=== PATIENT | female | born 1995 | race Caucasian/White ===

== ENCOUNTER 2018-04-07 19:54 | Inpatient (IN) | payer MEDICAID ==
[2018-04-07 20:08] VITALS: O2SAT 98
--- NOTE | 2018-04-07 20:18 | C.PDOC ---
History Of Present Illness 22 y/o female presents via ambulance, transferred for psychiatric admission for depression and suicidal attempt via overdose. Of note, patient was transferred from [facility] (Formerly [facility]3]. She was already evaluated and medically cleared for psychiatric admission, accepted under Dr. Blair. No other complaints offered on arrival. Time Seen by Provider: 04/07/18 20:04 Chief Complaint (Nursing): Psychiatric Evaluation History Per: Patient History/Exam Limitations: no limitations Onset/Duration Of Symptoms: Days Past Medical History Reviewed: Historical Data, Nursing Documentation, Vital Signs Vital Signs: Last Vital Signs Temp 98.5 F 04/07/18 20:02 Pulse 90 04/07/18 20:02 Resp 14 04/07/18 20:02 BP 115/75 04/07/18 20:02 Pulse Ox 98 04/07/18 20:02 - Medical History PMH: Anxiety, Depression Other Surgeries: 05/2017, Breast augmentation surgery Family History: States: No Known Family Hx - Social History Hx Alcohol Use: Yes Hx Substance Use: No - Immunization History Hx Tetanus Toxoid Vaccination: No Hx Influenza Vaccination: No Hx Pneumococcal Vaccination: No Review Of Systems Constitutional: Negative for: Fever Cardiovascular: Negative for: Chest Pain Respiratory: Negative for: Shortness of Breath Neurological: Negative for: Weakness, Numbness Psych: Positive for: Depression, Suicidal ideation Physical Exam - Physical Exam Appears: Non-toxic, No Acute Distress Skin: Normal Color, Warm, Dry Head: Atraumatic, Normacephalic Eye(s): bilateral: Normal Inspection Chest: Symmetrical Respiratory: No Accessory Muscle Use, Other (No respiratory distress) Extremity: Bilateral: Atraumatic, Normal Color And Temperature Pulses: Left Radial: Normal, Right Radial: Normal Neurological/Psych: Oriented x3, Normal Speech ED Course And Treatment O2 Sat by Pulse Oximetry: 98 (RA) Pulse Ox Interpretation: Normal Progress Note: Patient already accepted under Dr. Blair, admit orders placed. Disposition - Disposition Disposition: HOSPITALIZED Disposition Time: 20:46 Condition: STABLE - POA Present On Arrival: None - Clinical Impression Clinical Impression: Moderate major depression, single episode, Suicide attempt - Scribe Statement The provider has reviewed the documentation as recorded by the Scribe (Macy Shirley) Provider Attestation: All medical record entries made by the Scribe were at my direction and personally dictated by me. I have reviewed the chart and agree that the record accurately reflects my personal performance of the history, physical exam, medical decision making, and the department course for this patient. I have also personally directed, reviewed, and agree with the discharge instructions and disposition.
--- NOTE | 2018-04-08 14:45 | PCM.BM ---
<Tamara Sanders - Last Filed: 04/08/18 14:40> Treatment assets and liabiliti Patient Assests: cooperative, ADL independent, cognitively intact Patient Liabilities: live alone - Milieu Protocol Maintain good personal hygiene: daily Encourage regular showers Conduct patient checks and document Observation sheet: Q15 minutes Maintain personal safety: every shift Educate patient to report safety concerns to staff, every shift Monitor environment for contraband/sharps Medication safety: Monitor for expected outcome, potential side effects: every shift, Assess barriers to learning: every shift, Assess readiness for medication education: every shift <Doris Raymundo - Last Filed: 04/08/18 15:27> Family Contact Family involvement: Patient does not wish Family/SO involvement Family contact: Patient declines to allow family contact at present - Goals for Treatment Patient goals for treatment: "I want to be referred to an outpatient program for treatment." Discharge/Continuing Care - Education Needs Education Needs: Patient Medication, Patient Diagnosis/Disease Process, Patient Coping Skills, Patient Placement options, Patient Community resources - Discharge Discharge Criteria: Free of Suicidal thoughts, Normal sleep pattern, Ability to care for self, Reduction of target symptoms Discharge to:: Home - Treatment Team Participation Discussed with Family/SO: No Was Patient/Family/SO present at Treatment Team Meeting: Yes
--- NOTE | 2018-04-08 20:02 | PCM.PSYCH ---
Initial Psychiatric Evaluation - Initial Psychiatric Evaluation Type of Admission: Voluntary Legal Status: Capacity Chief Complaint (in patient's own words): I was depressed and I took 10 tablets of Loxitane age of 6 mg to kill myself. History of Present Illness and Precipitating Events: Patient is a 22 years old, single, recently employed, female with history of depression for last 2 years, increased in intensity since May 2017 after patient had . Patient started feeling more depressed, decreased sleep, feeling tired. Increased appetite, eats in binges especially when she is stressed. Suicidal ideations at time. Crying a lot, guilty, hopelessness and helplessness. Denied any psychosis, tommy or anxiety. This is patient's first psychiatric admission. Patient has history of visiting a psychiatrist/psychologist in [place]. Patient's last visit was 3 months ago. Patient was also getting therapy via phone from psychologist in [place]. Patient had one manic episodes in 2017 for 7 days. Patient moved from [place] to [place] to stay with her boyfriend. Patient started feeling depressed. Before admission patient to 10 tablets of Lexapro in order to kill herself due to depression. Patient has history of multiple surgeries including liposuction, breast implants, cheek surgery and also and enhancement of her butts. Patient started cannabis at 20 years of age. Patient reported she smoked only 4- 5 times since then. Last used on August 2017. Alcohol started drinking in May 2017 after having an . Last drink reported in June 2017. Patient was born in [place], has high school graduation. Started working one week ago. Lives with boyfriend. Her height is 5 feet 4 inches and weight is 155 pounds. Current Medications: Active Medications Generic Name Dose Route Start Last Admin Trade Name Freq PRN Reason Stop Dose Admin Haloperidol 5 mg 04/08/18 15:14 Haldol PO Q6 PRN Agitation Hydroxyzine HCl 25 mg 04/08/18 15:14 Atarax PO Q6 PRN Anxiety Floris Carbonate 300 mg 04/08/18 18:00 04/08/18 18:17 Floris Carbonate 300mg PO 300 mg BID ROSIE Administration Pneumococcal Polyvalent Vaccine 0.5 ml 04/09/18 10:00 Pneumovax 23 Vaccine IM 04/09/18 10:01 .ONCE ONE Sertraline HCl 50 mg 04/08/18 15:45 04/08/18 16:55 Zoloft PO 50 mg DAILY ROSIE Administration Trazodone HCl 50 mg 04/08/18 22:00 Desyrel PO HS ROSIE Past Psychiatric History - Past Psychiatric History Previous Treatment History: None History of Abuse: None reported History of ETOH/Drug Use: See HPI History of Family Illness: Reported history of alcohol and cocaine use in father. Pertinent Medical Hx (Current Medical&Sleep Prob, Allergies): Allergies Allergy/AdvReac Type Severity Reaction Status Date / Time No Known Allergies Allergy Unverified 04/07/18 20:07 Review of Systems - Psychiatric Psychiatric: As Per HPI, Depression, Hopelessness, Suicidal Ideation Mental Status Examination - Personal Presentation Personal Presentation: Looks stated age - Affect Affect: Depressed - Motor Activity Motor Activity: Calm - Reliability in Providing Information Reliability in Providing Information: Fair - Speech Speech: Organized - Mood Mood: Depressed - Formal Thought Process Formal Thought Process: No Impairment Additional comments: None - Hallucinations/Delusions Hallucinations: Other (None reported) Delusions: Other - Obsessions/Compulsions Obsessions: None Compulsions: None - Cognitive Functions Orientation: Person, Place, Situation, Time Sensorium: Alert Attention/Concentration: Attentive Abstract Thinking: [place] Estimate of Intelligence: Average Judgement: Intact, as evidence by: Insight regarding need for hospitalization Memory: Recent intact, as evidence by: 3/3 object recall, Remote intact, as evidenced by: Ability to recall historical events - Risk Risk: Withdrawal, Diminished functioning - Strength & Assets Inventory Strength & Assets Inventory: Cooperative - Limitations Limitations: Other (Lives with boyfriend) DSM 5 DX - DSM 5 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 Supportive therapy. We will start Zoloft and lithium for depression and suicidal ideations. Other when necessary medications. Patient will discuss with the social workers to find a follow-up place. Projected ELOS: 8-10 days - Smoking Cessation Smoking Cessation Initiated: No Reason for not providing: Patient doesn't smoke cigarettes
[2018-04-09] MEDS ORDERED: Pneumococcal 23-Valent Vaccine IM ONE (10:00)
--- NOTE | 2018-04-09 17:55 | PCM.PYCHPN ---
Psychiatric Progress Note - Psychiatric Progress Note Patient seen today, length of contact: 15 minutes Patient Chief Complaint: I'm feeling little better. Problems Identified/Issues Discussed: Patient seen, chart reviewed, case discussed with the staff. Issues related to illness and treatment were discussed with the patient and staff. Reported compliant with treatment with no adverse affects. Tolerating treatment very well. Patient reported feeling little better with the treatment. Staff reported that patient was little irritable yesterday evening, later calmed down after supportive therapy from this staff. Calm and cooperative. Awake, alert and oriented 3. No psychomotor activity, good eye contact, memory intact. Aftercare discussed with the patient. Denied any delusions, auditory or visual hallucinations, suicidal ideations or homicidal ideations at the time of evaluation. Medical Problems: None reported Diagnostic Results: Reviewed DSM 5 Symptoms Update: Some improvement with treatment, needs more time for stabilization. Medication Change: No Medical Record Reviewed: Yes Mental Status Examination - Cognitive Function Orientation: Person, Place, Situation, Time Memory: Intact Attention: WNL Concentration: WNL Association: WN Fund of Knowledge: [facility] Decription of patient's judgement and insights: Good - Mood Mood: Depressed - Affect Affect: Depressed - Speech Speech: Appropriate - Formal Thought Process Formal Thought Process: No Impairment Psychotic Thoughts and Behaviors: None - Suicidal Ideation Suicidal Ideation: No - Homicidal Ideation Homicidal Ideation: No Goal/Treatment Plan - Goal/Treatment Plan Need for Continued Stay: Remain at risks for inpatient hospitalization, Discharge may exacerbated symptoms, Severe functional impairment Progress Toward Problem(s) and Goals/Treatment Plan: Patient/staff education. Supportive therapy. Continue treatment as before. Estimated Date of D/C: 04/13/18 - Smoking Cessation Smoking Cessation Initiated: No Reason for not providing: Patient doesn't smoke cigarettes
[2018-04-10 06:42] VITALS: BP 103/69; PULSE 66; RESP 18; TEMP 98.6
--- NOTE | 2018-04-10 19:23 | PCM.PYCHDC ---
Mental Status Examination - Mental Status Examination Description of patient's judgement and insight: Good Psychotic Thoughts and Behaviors: None Discharge Summary - Discharge Note Reason for Hospitalization: Major depressive disorder recurrent severe without psychotic features. Consultations:: List each consultation separately and include: 1. Reason for request. 2. Findings. 3. Follow-up Summary of Hospital Course include:: 1. Description of specific treatment plan utilized for patients during their course of treatmen. 2. Summarize the time- course for resolution of acute symptoms and/or regressed behaviors. 3. Describe issues identified and worked on during hospitalization. 4. Describe medication utilized. 5. Describe medical problems identified and treated. 6. Reassessment of suicide risk Summary of Hospital Course: Patient is a 22 years old, single, recently employed, female with history of depression for last 2 years, increased in intensity since May 2017 after patient had . Patient started feeling more depressed, decreased sleep, feeling tired. Increased appetite, eats in binges especially when she is stressed. Suicidal ideations at time. Crying a lot, guilty, hopelessness and helplessness. Denied any psychosis, tommy or anxiety. This is patient's first psychiatric admission. Patient has history of visiting a psychiatrist/psychologist in [place]. Patient's last visit was 3 months ago. Patient was also getting therapy via phone from psychologist in [place]. Patient had one manic episodes in 2017 for 7 days. Patient moved from [place] to [place] to stay with her boyfriend. Patient started feeling depressed. Before admission patient to 10 tablets of Lexapro in order to kill herself due to depression. Patient has history of multiple surgeries including liposuction, breast implants, cheek surgery and also and enhancement of her butts. Patient started cannabis at 20 years of age. Patient reported she smoked only 4- 5 times since then. Last used on August 2017. Alcohol started drinking in May 2017 after having an . Last drink reported in June 2017. Patient was born in [place], has high school graduation. Started working one week ago. Lives with boyfriend. Her height is 5 feet 4 inches and weight is 155 pounds. - Final Diagnosis (DSM 5) Condition upon Discharge: STABLE Disposition: HOME/ ROUTINE Follow-up Treatment Plan: Patient/staff education. Supportive therapy. Continue treatment as before. Prescriptions/Medication Reconciliation: Eyota Carbonate [Eyota Carbonate 300MG] 300 mg PO BID #60 cap Sertraline [Zoloft] 50 mg PO DAILY #30 tab traZODone [Desyrel] 50 mg PO HS #30 tab
== END 2018-04-10 14:05 | disposition home or self-care (01) | DRG 751 ==
LOC: C.ER 19:54 → C.5E 20:13
DX: F33.2 Major depressive disorder, recurrent severe without psychotic features (principal); R45.851 Suicidal ideations; Z98.82 Breast implant status